=== PATIENT | female | born 1950 | race Caucasian/White ===

== ENCOUNTER 2021-04-06 12:01 | Emergency (ER) | payer MEDICARE, OTHER ==
--- NOTE | 2021-04-06 12:55 | EDM.PDOC ---
ED HPI GENERAL MEDICAL PROBLEM - General Chief Complaint: General Stated Complaint: SINCE 03/25 LOTS OF COUGHING AND VERY TIRED Time Seen by Provider: 04/06/21 12:30 Source of Information: Reports: Patient History Limitations: Reports: No Limitations - History of Present Illness INITIAL COMMENTS - FREE TEXT/NARRATIVE: This is a 71-year-old female presents with concerns of nasal congestion, voice changes. She is approximately day 8 of symptoms. She is visiting the area from [place]. She reports that she does have seasonal allergies and symptoms feel very similar to that. She left [place] for trip to [place] last week. She was in contact with a cat which seemed to aggravate her symptoms but they have now not gone away. She has been trying [id number] allergy medications without any relief. She does not have any fevers. No sinus pressure pain. Had some right ear pain which is improving. Has noticed some muffling of her voice. No difficulty swallowing. mild cough. No difficulty breathing or stridor. - Related Data Allergies Allergy/AdvReac Type Severity Reaction Status Date / Time cat dander Allergy Sneezing Verified 04/06/21 12:35 Home Meds: Home Meds Amoxicillin/Clavulanate K [Augmentin 875-125 MG] 1 tab PO BID #10 tablet 04/06/21 [Rx] Past Medical History HEENT History: Reports: Allergic Rhinitis, Cataract Cardiovascular History: Reports: None Respiratory History: Reports: None Gastrointestinal History: Reports: None Genitourinary History: Reports: None MEDIA RECONCILIATION SPECIALIST History: Reports: Musculoskeletal History: Reports: None Neurological History: Reports: None Psychiatric History: Reports: None Endocrine/Metabolic History: Reports: None Hematologic History: Reports: Hemochromatosis Immunologic History: Reports: None Oncologic (Cancer) History: Reports: None Dermatologic History: Reports: None - Infectious Disease History Infectious Disease History: Reports: Chicken Pox, Measles Other Infectious Disease History: had covid vacc fe - Past Surgical History HEENT Surgical History: Reports: Cataract Surgery Cardiovascular Surgical History: Reports: None GI Surgical History: Reports: Colonoscopy Female Surgical History: Reports: Tubal Ligation Musculoskeletal Surgical History: Reports: Knee Replacement Social & Family History - Tobacco Use Tobacco Use Status *Q: Never Tobacco User - Caffeine Use Caffeine Use: Reports: Coffee, Soda Caffeine Use Comment: occ - Recreational Drug Use Recreational Drug Use: No ED ROS GENERAL - Review of Systems Review Of Systems: See Below Constitutional: Reports: No Symptoms HEENT: Reports: Ear Pain Respiratory: Reports: Cough Cardiovascular: Reports: No Symptoms Endocrine: Reports: No Symptoms GI/Abdominal: Reports: No Symptoms : Reports: No Symptoms Musculoskeletal: Reports: No Symptoms Skin: Reports: No Symptoms Neurological: Reports: No Symptoms Psychiatric: Reports: No Symptoms Hematologic/Lymphatic: Reports: No Symptoms Immunologic: Reports: No Symptoms ED EXAM, GENERAL - Physical Exam Exam: See Below Exam Limited By: No Limitations General Appearance: Alert, No Apparent Distress Ears: Normal External Exam Ear Exam: Bilateral Ear: TM normal Nose: Normal Inspection Throat/Mouth: Normal Inspection, Other (No oropharyngeal erythema or edema, uvula is midline.) Head: Atraumatic, Normocephalic, Other (No sinus tenderness to percussion) Neck: Normal Inspection, Full Range of Motion Respiratory/Chest: Lungs Clear Cardiovascular: Regular Rate, Rhythm GI/Abdominal: Soft, No Distention Back Exam: Normal Inspection Extremities: Normal Inspection Neurological: Alert, Oriented Psychiatric: Normal Affect, Normal Mood Skin Exam: Warm, Dry Course - Vital Signs Last Recorded V/S: Last Vital Signs Temp 36.5 C 04/06/21 12:23 Pulse 73 04/06/21 12:23 Resp 14 04/06/21 12:23 BP 124/74 04/06/21 12:23 Pulse Ox 96 04/06/21 12:23 - Re-Assessments/Exams Free Text/Narrative Re-Assessment/Exam: 71-year-old female presents with concerns of symptoms consistent with sinusitis and pharyngitis. Reassuring physical exam. She has normal vitals. She has no sinus tenderness. There is no evidence of significant airway edema, oropharyngeal exam is without erythema, full range of motion of the neck and I have low suspicion for deep space infection. I think she likely is having symptoms related to allergies and/or viral infection. Unfortunately not responded to [id number] allergy meds. Duration and severity of symptoms, lack of fever, not consistent with a bacterial sinusitis. Given the patient is now day 8 of symptoms, I did write her a prescription for an antibiotic if she fails to improve in the next couple days, but again our suspicion for bacterial infection is low and she agrees to defer filling this unless she is failing to improve after several more days. She is safe for discharge and we discussed return precautions. 04/06/21 14:21 Departure - Departure Time of Disposition: 12:53 Disposition: Home, Self-Care 01 Clinical Impression: Sinusitis Qualifiers: Sinusitis location: other Chronicity: acute Recurrence: non-recurrent Qualified Code(s): J01.80 - Other acute sinusitis - Discharge Information *PRESCRIPTION DRUG MONITORING PROGRAM REVIEWED*: No *COPY OF PRESCRIPTION DRUG MONITORING REPORT IN PATIENT RUSTY: No Prescriptions: Amoxicillin/Clavulanate K [Augmentin 875-125 MG] 1 tab PO BID #10 tablet Instructions: Sinusitis, Adult Referrals: PCP,None [Primary Care Provider] - Forms: ED Department Discharge Additional Instructions: As we discussed, we suspect your symptoms are due to inflamed sinuses either due to allergies or a viral infection. We have written you a prescription for an antibiotic, but would suggest that you wait a few more days to see if your symptoms improve before you fill this. If you feel that your symptoms are worsening or you develop fevers you could start the antibiotic sooner. If you begin to feel short of breath or develop other new symptoms you find concerning we are always happy to reevaluate you in the ER. Thank you for trusting us to care for you today. Sepsis Event Note (ED) - Evaluation Sepsis Screening Result: No Definite Risk - Focused Exam Vital Signs: Vital Signs Temp Pulse Resp BP Pulse Ox 04/06/21 12:23 36.5 C 73 14 124/74 96 04/06/21 12:22 36.5 C 73 14 124/74 96
== END 2021-04-06 13:20 | disposition home or self-care (01) ==
LOC: JP.ED 12:01
DX: J01.80 Other acute sinusitis (principal); Z91.09 Other allergy status, other than to drugs and biological substances
CPT/HCPCS: 99283